=== PATIENT | female | born 2000 | race Hispanic/Latino ===

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

== ENCOUNTER 2019-11-15 23:50 | Emergency (ER) | payer BC, SELFPAY ==
--- NOTE | 2019-11-16 00:32 | EDPHYS ---
Physician Documentation [facility] Name: Loren Hanna Age: 19 yrs Sex: Female : 2000 Arrival Date: 11/15/2019 Time: 23:54 Bed 6 Private MD: ED Physician Ainl Portillo HPI: 11/15 00:17 This 19 yrs old Female presents to ER via Ambulatory with complaints of Ear pkl Pain. 00:17 The patient presents with pain, that is acute. The complaints affect the left ear. pkl Onset: The symptoms/episode began/occurred 1 week(s) ago. Associated signs and symptoms: Pertinent positives: decrease hearing. 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 - Social history:: Smoking status: Patient denies any tobacco usage or history of. Patient/guardian denies using alcohol, street drugs, IV drugs. ROS: 00:17 Eyes: Negative for injury, pain, redness, and discharge. pkl 00:17 ENT: Positive for ear pain, hearing loss, of the left ear. 00:17 Neck: Negative for injury or acute deformity. 00:17 Cardiovascular: Negative for chest pain. 00:17 Respiratory: Negative for cough. 00:17 Abdomen/GI: Negative for abdominal pain, nausea, vomiting, and diarrhea. 00:17 Back: Negative for acute changes. 00:17 : Negative for urinary symptoms. 00:17 MS/extremity: Negative for acute changes. 00:17 Skin: Negative for rash. 00:17 Neuro: Negative for altered mental status. Exam: 00:17 Head/Face: Normocephalic, atraumatic. Eyes: Pupils equal round and reactive to light, pkl extra-ocular motions intact. Lids and lashes normal. Conjunctiva and sclera are non-icteric and not injected. Cornea within normal limits. Periorbital areas with no swelling, redness, or edema. 00:17 ENT: External ear(s): erythema, that is minimal, TM's: possible rupture TM. 00:17 Neck: Exam negative for acute changes. 00:17 Chest/axilla: Exam negative for acute changes. 00:17 Cardiovascular: Rate: normal, Rhythm: regular. 00:17 Respiratory: Exam negative for acute changes. 00:17 Abdomen/GI: Exam negative for acute changes. 00:17 Back: Exam negative for acute changes. 00:17 : Exam negative for acute changes. 00:17 Musculoskeletal/extremity: Exam is negative for acute changes. 00:17 Skin: Exam negative for rash. 00:17 Neuro: Orientation: is normal, Mentation: is normal, Cranial nerves: grossly normal, Motor: is normal. Vital Signs: 00:06 BP 126 / 67; Pulse 69; Resp 18; Temp 96.8; Pulse Ox 100% on R/A; Weight 68.04 kg; mg2 Height 5 ft. 0 in. (152.40 cm); 00:06 Body Mass Index 29.29 (68.04 kg, 152.40 cm) mg2 MDM: 00:11 Patient medically screened. pkl 00:30 Data reviewed: vital signs, nurses notes. pkl Administered Medications: 00:27 Drug: UltRAM 50 mg Route: PO; mg2 00:39 Follow up: Response: No adverse reaction; Medication administered at discharge. mg2 00:27 Drug: Cipro 500 mg Route: PO; mg2 00:38 Follow up: Response: No adverse reaction; Medication administered at discharge. mg2 Disposition: 11/16/19 00:32 Discharged to Home. Impression: Left ear pain. Possible rupture tympanic membrane. - Condition is Stable. - Prescriptions for Ultram 50 mg Oral Tablet - take 1 tablet by ORAL route every 8 hours As needed; 15 tablet. Cipro 500 mg Oral Tablet - take 1 tablet by ORAL route every 12 hours for 7 days; 14 tablet. - Medication Reconciliation Form, Thank You Letter, Antibiotic Education, Prescription Opioid Use form. - Follow up: Tita Rudolph MD; When: 1 week; Reason: Re-evaluation by your physician. - Problem is new. - Symptoms are unchanged. Signatures: Anil Portillo MD MD pkl Lupillo Gómez RN RN mg2 Corrections: (The following items were deleted from the chart) 00:39 00:32 11/16/2019 00:32 Discharged to Home. Impression: Left ear pain. Possible rupture mg2 tympanic membrane. Condition is Stable. Forms are Medication Reconciliation Form, Thank You Letter, Antibiotic Education, Prescription Opioid Use. Follow up: Tita Rudolph; When: 1 week; Reason: Re-evaluation by your physician. Problem is new. Symptoms are unchanged. pkl
--- NOTE | 2019-11-16 00:32 | ER ---
Nurse's Notes [facility] Name: Loren Hanna Age: 19 yrs Sex: Female : 2000 Arrival Date: 11/15/2019 Time: 23:54 Bed 6 Private MD: Diagnosis: Left ear pain. Possible rupture tympanic membrane Presentation: 11/15 00:06 Chief complaint: Patient states: i have left ear pressure that radiates to my left mg2 cheek for a week now. no drainage noted. Coronavirus screen: Proceed with normal triage. Patient denies a cough. Patient denies shortness of breath or difficulty breathing. Patient denies measured and/or subjective temperature greater than 100.4F prior to today's visit. Patient denies travel on a cruise ship or to a country the [facility] currently lists as an affected area. Patient denies contact with known and/or suspected case of COVID-19. Ebola Screen: No symptoms or risks identified at this time. Initial Sepsis Screen: Does the patient meet any 2 criteria? No. Patient's initial sepsis screen is negative. Does the patient have a suspected source of infection? No. Patient's initial sepsis screen is negative. Risk Assessment: Do you want to hurt yourself or someone else? Patient reports no desire to harm self or others. Onset of symptoms was November 16, 2019. 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 - Social history:: Smoking status: Patient denies any tobacco usage or history of. Patient/guardian denies using alcohol, street drugs, IV drugs. Screenin:09 Abuse screen: Denies threats or abuse. Denies injuries from another. Nutritional mg2 screening: No deficits noted. Tuberculosis screening: No symptoms or risk factors identified. Fall Risk None identified. Assessment: 00:08 General: Appears in no apparent distress. comfortable, Behavior is calm, cooperative. mg2 Pain: Complains of pain in left ear. Pain: Pain radiates to left cheek. Neuro: Level of Consciousness is awake, alert, obeys commands, Oriented to person, place, time, situation. Cardiovascular: Capillary refill < 3 seconds Patient's skin is warm and dry. Respiratory: Airway is patent Respiratory effort is even, unlabored, Respiratory pattern is regular, symmetrical. GI: No signs and/or symptoms were reported involving the gastrointestinal system. : No signs and/or symptoms were reported regarding the genitourinary system. EENT: Reports pain in left ear. Derm: Skin is intact, is healthy with good turgor, Skin is pink, warm \T\ dry. normal. Musculoskeletal: Circulation, motion, and sensation intact. Capillary refill < 3 seconds. Vital Signs: 00:06 BP 126 / 67; Pulse 69; Resp 18; Temp 96.8; Pulse Ox 100% on R/A; Weight 68.04 kg; mg2 Height 5 ft. 0 in. (152.40 cm); 00:06 Body Mass Index 29.29 (68.04 kg, 152.40 cm) mg2 ED Course: 11/14 23:54 Patient arrived in ED. bp1 11/15 00:05 Lupillo Gómez, DEB is Primary Nurse. mg2 00:07 Triage completed. mg2 00:08 Arm band placed on. mg2 00:09 Patient has correct armband on for positive identification. mg2 00:09 No provider procedures requiring assistance completed. Patient did not have IV access mg2 during this emergency room visit. 00:12 Anil Portillo MD is Attending Physician. pkl 00:30 Tita Rudolph MD is Referral Physician. pkl Administered Medications: 00:27 Drug: UltRAM 50 mg Route: PO; mg2 00:39 Follow up: Response: No adverse reaction; Medication administered at discharge. mg2 00:27 Drug: Cipro 500 mg Route: PO; mg2 00:38 Follow up: Response: No adverse reaction; Medication administered at discharge. mg2 Outcome: 00:32 Discharge ordered by . pkl 00:39 Discharged to home ambulatory. mg2 00:39 Condition: stable 00:39 Discharge instructions given to patient, Instructed on discharge instructions, follow up and referral plans. medication usage, Demonstrated understanding of instructions, follow-up care, medications, Prescriptions given X 2. 00:39 Patient left the ED. mg2 Signatures: Anil Portillo MD MD pkLupillo Cantu, RN RN mg2 Fernanda Pagan bp1
[2019-11-16] MEDS ORDERED: CIPROFLOXACIN HCL 500 MG TAB ONE (00:34)
[2019-11-16] MEDS ORDERED: TRAMADOL HCL 50 MG TAB ONE (00:35)
[2019-11-16 01:34] VITALS: BP 126/67; TEMP 96.8; O2SAT 100
== END 2019-11-16 00:39 | disposition home or self-care (01) ==
LOC: ER 23:50
DX: H92.02 Otalgia, left ear (principal)
CPT/HCPCS: 99283

== ENCOUNTER 2023-12-16 22:12 | Emergency (ER) | payer SELFPAY ==
--- OUTSIDE RECORDS SUMMARY | 2023-12-16 22:14 | XMS REPORT | Continuity of Care Document ---
Author Name Unknown Address [address] [facility]. [address] [place] [address] [facility] thconnect Address [address] [facility] [address] [place] [address] Care Team Providers Care Touch Up Worker Name Role Phone Pcp, Patient Does Not Have A Primary Care Physic faith Gladis Green Attending Clinician [phone] Unknown, Attending Attending Clinician Unavailab GLADIS Lucero Attending Clinician Unavailable Doctor Unassigned, [place] Attending Clinician U dominick Boucher RN, Beverly Gage Attending Clinician Unavailab Janie Katz MD Attending Clinician [phone] Hernan José Attending Clinician [phone] HERNAN SEN Attending Clinician Unavailabl e Lab, Adc Fam Pob I Attending Clinician UnavailMarta Ayoub Attending Clinician [phone] MARTA SERNA Attending Clinician Unavailable Payers Payer Name Policy Type Policy Number Effective Date Expirati on Date Source [facility] [id number] 2021 00:00:00 Problems Condition Name Condition Details Condition Category Status Onset Date Resolution Date Last Treatment Date Treating Clinician Comments Source No known active problems No known active problems Disease [facility] Allergies, Adverse Reactions, Alerts Allergy Name Allergy Type Status Severity Reaction(s) Onset Date Inactive Date Treating Clinician Comments Source NO KNOWN ALLERGIE S Drug Class Active [facility] Social History Social Habit Start Date Stop Date Quantity Comments Source Gender [facility] History of Social function 2023-01-15 00:00:00 2023-01-15 00:00:00 [facility] Exposure to SARS-CoV-2 (event) 2020-12-23 00:00:00 2021-01-22 09:58:00 Not sure [facility] Tobacco use and exposure 2021-01-22 00:00:00 2021-01-22 00:00:00 Smokeless tobacco non-user [facility] Sex Assigned At 2000 00:00:00 2000 00:00:00 [facility] Smoking Status Start Date Stop Date Source Tobacco smoking consumption unknown [facility] Never smoked tobacco [facility] Medications Ordered Medication Name Filled Medication Name Start Date Stop Date Current Medication? Ordering Clinician Indication Dosage Frequency Signature (SIG) Comments Components Source guaiFENesin 400 mg tablet 01-22 00:00: 00 Yes [id number] 400mg Take 1 tablet by mouth every 4 (four) hours as needed for Cough. [facility] bromphenira mine-pseudo ephedrine-D M (BROMFED DM) 2-30-10 mg/5 mL syrup 01-22 00:00: 00 Yes [id number] 5mL Take 5 mL by mouth 4 (four) times daily as needed for Congestion /Allergies . [facility] benzonatate 100 mg capsule 01-22 00:00: 00 Yes [id number] 200mg Take 2 capsules by mouth 2 (two) times daily as needed for Cough. [facility] Vital Signs Vital Name Observation Time Observation Value Comments S rafaela Systolic blood pressure 2023-01-15 19:49:00 113 mm[Hg] [facility] Diastolic blood pressure 2023-01-15 19:49:00 77 mm[Hg] [facility] Heart rate 2023-01-15 19:49:00 92 /min [facility] Body temperature 2023-01-15 19:49:00 36.94 [place]ou [facility] Respiratory rate 2023-01-15 19:49:00 16 /min [facility] Body weight 2023-01-15 19:49:00 79.379 kg [facility] BMI 2023-01-15 19:49:00 34.18 kg/m2 [facility] Oxygen saturation in Arterial blood by Pulse oximetry 2023-01-15 19:49:00 98 /min [facility] Systolic blood pressure 2021-01-22 15:00:00 107 mm[Hg] [facility] Diastolic blood pressure 2021-01-22 15:00:00 74 mm[Hg] [facility] Heart rate 2021-01-22 15:00:00 92 /min [facility] Body temperature 2021-01-22 15:00:00 36.94 [place] [facility] Respiratory rate 2021-01-22 15:00:00 18 /min [facility] Body height 2021-01-22 15:00:00 152.4 cm [facility] Body weight 2021-01-22 15:00:00 68.539 kg [facility] BMI 2021-01-22 15:00:00 29.51 kg/m2 [facility] Oxygen saturation in Arterial blood by Pulse oximetry 2021-01-22 15:00:00 99 /min [facility] Procedures Procedure Date / Time Performed Performing Clinician Source POCT MOLECULAR STREP 2023-01-15 19:52:00 Unknown, Atte nding [facility] CONSENT/REFUSAL FOR DIAGNOSIS AND TREATMENT 2023-01-15 19:43:19 Doctor Unassigned, [place] [facility] PATIENT QUESTIONNAIRE 2019-12-15 05:01:00 Doctor Unassigned, [place] [facility] Encounters Start Date/Time End Date/Time Encounter Type Admission Type Attending Clinicians Care Facility Care Department Encounter ID Source 2023-01-15 14:20:00 2023-01-15 14:40:00 Urgent Care Gladis Boss Unknown, Attending [facility] [place] [id number] 350.1.13.10 4.2.7.2.686 [id number] [facility] 2023-01-15 14:20:00 2023-01-15 14:20:00 Outpatient R SANGEETHA BOSSChayitoAmadeo [facility] [id number] [facility] 2023-01-15 00:00:00 2023-01-15 00:00:00 Orders Only Doctor Unassigned, [place] [facility] 1.0.114 350.1.13.10 4.2.7.2.686 [id number] [facility] 2021-01-23 00:00:00 2021-01-23 00:00:00 Letter (Out) Beverly Boucher [facility] 1..114 350.1.13.10 4.2.7.2.686 [id number] [facility] 2021-01-22 09:19:15 2021-01-22 09:39:15 [facility] 1.114 350.1.13.10 4.2.7.2.686 [id number] [facility] 2021-01-22 09:20:00 2021-01-22 09:20:00 [id number] 2019-12-16 00:00:00 2019-12-16 00:00:00 Patient Secure Msg Doctor Unassigned, [place] [facility] 1..114 350.1.13.10 4.2.7.2.686 [id number] [facility] 2019-12-15 08:14:15 2019-12-15 08:34:15 Laboratory Only Lab, Adc Fam Pob I [facility] Building One 1.114 350.1.13.10 4.2.7.2.686 [id number] 2019-12-15 08:14:15 2019-12-15 08:34:15 Laboratory Only Lab, Adc Fam Pob I [facility] Building One 1.2.840.114 350.1.13.10 4.2.7.2.686 [id number] [facility] 2019-12-15 08:20:00 2019-12-15 08:20:00 [id number] 2019-12-15 00:00:00 2019-12-15 00:00:00 Orders Only Doctor Unassigned, [place] [facility] 1.2.840.114 350.1.13.10 4.2.7.2.686 [id number] 2019-12-15 00:00:00 2019-12-15 00:00:00 Orders Only Doctor Unassigned, [place] [facility] 1.2.840.114 350.1.13.10 4.2.7.2.686 [id number] [facility] 2019-12-03 00:00:00 2019-12-03 00:00:00 Telephone [facility] 1.2.840.114 350.1.13.10 4.2.7.2.686 [id number] [facility] 2019-12-03 00:00:00 2019-12-03 00:00:00 Telephone [facility] 1.2.840.114 350.1.13.10 4.2.7.2.686 [id number] 2019-12-01 14:40:00 2019-12-01 14:40:00 Outpatient MARTA MICHELLE [facility] [id number] [facility] 2019-12-01 14:10:34 2019-12-01 14:30:34 Laboratory Only Lab, Adc Fam Pob I Anene, Marta [facility] Building One 1.840.114 350.1.13.10 4.2.7.2.686 [id number] [facility] 2019-12-01 14:10:34 2019-12-01 14:30:34 Laboratory Only Lab, Adc Fam Pob I [facility] Building One 1.840.114 350.1.13.10 4.2.7.2.686 [id number] Results Test Description Test Time Test Comments Results Result Co mments Source [facility]
[2023-12-16] MEDS ORDERED: ONDANSETRON 4 MG (ODT) TAB ONE (22:26)
[2023-12-16] MEDS ORDERED: IBUPROFEN 400 MG TAB ONE (22:26)
[2023-12-16] MEDS ORDERED: IBUPROFEN 200 MG TAB PO ONE (22:26)
[2023-12-16 22:43] LABS: Specific Gravity 1.028 (1.005-1.030)
[2023-12-16 22:44] LABS: Specific Gravity 1.028 (1.005-1.030); Sqamous Epithelial <5 /HPF (None Seen); Urine Bacteria None Seen /HPF (<20); Urine Bilirubin NEGATIVE (Negative); Urine Blood Trace (Negative); Urine Clarity Clear (Clear); Urine Color Yellow (Yellow); Urine Culture Reflex Order NOT NEEDED; Urine Glucose NEGATIVE (Negative); Urine Ketones 1+ (Negative); Urine Microscopic Reflex YN ORDER UMIC; Urine Mucus 2+ /HPF (None Seen); Urine Nitrite NEGATIVE (Negative); Urine Protein TRACE (Negative); Urine Urobilinogen Normal (Normal); Urine WBC <5 /HPF (<5); Urine pH 6.5 (5.0-7.0)
[2023-12-16 23:21] LABS: SARS-CoV-2 Antigen CONTROL BLUE LINE VIS/BG OK; SARS-CoV-2 Antigen Rapid Res Positive (Negative)
--- NOTE | 2023-12-16 23:24 | ER ---
Nurse's Notes [facility] Name: Loren Hanna Age: 23 yrs Sex: Female : 2000 Arrival Date: 12/16/2023 Time: 22:12 Bed IW1 Private MD: Diagnosis: SARS-associated coronavirus as the cause of diseases classified elsewhere Presentation: 12/15 22:24 Chief complaint: Patient states: Sore throat onset yessterday. Pt reports abdominal cm10 pain, cough, fever, nausea and vomiting onset today. Coronavirus screen: Client denies travel out of the [place] in the last 14 days. At this time, the client does not indicate any symptoms associated with coronavirus-19. Ebola Screen: Patient denies travel to an Ebola-affected area in the 21 days before illness onset. No symptoms or risks identified at this time. Initial Sepsis Screen: Does the patient meet any 2 criteria? Temp <36.0*C (96.8*F)) or > 38.3*C (100.9*F). HR > 90 bpm. Does the patient have a suspected source of infection? No. Patient's initial sepsis screen is negative. Risk Assessment: Do you want to hurt yourself or someone else? Patient reports no desire to harm self or others. Onset of symptoms was December 16, 2023. 22:24 Method Of Arrival: Ambulatory cm10 22:24 Acuity: FLACO 3 cm10 Triage Assessment: 22:25 General: Appears in no apparent distress. uncomfortable, Behavior is calm, cooperative. cm10 Pain: Complains of pain in head and abdomen. Neuro: No deficits noted. Level of Consciousness is awake, alert, obeys commands, Oriented to person, place, time, situation, Appropriate for age. Respiratory: No deficits noted. Airway is patent Respiratory effort is even, unlabored, Respiratory pattern is regular, symmetrical. 23:37 GI: Reports nausea, vomiting. 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 - Infectious Disease History:: Denies. - Social history:: Smoking status: Patient denies any tobacco usage or history of. Screenin:36 [facility] ED Fall Risk Assessment (Adult) History of falling in the last 3 months, cm10 including since admission No falls in past 3 months (0 pts) Confusion or Disorientation No (0 pts) Intoxicated or Sedated No (0 pts) Impaired Gait No (0 pts) Mobility Assist Device Used No (0 pt) Altered Elimination No (0 pt) Score/Fall Risk Level 0 - 2 = Low Risk Oriented to surroundings, Maintained a safe environment, Hourly rounding (assess needs \T\ fall precautionary measures) done. Abuse screen: Denies threats or abuse. Denies injuries from another. Nutritional screening: No deficits noted. Tuberculosis screening: No symptoms or risk factors identified. Vital Signs: 22:24 BP 119 / 71; Pulse 128; Resp 18; Temp 101.6(O); Pulse Ox 99% on R/A; Weight 74.84 kg; cm10 Height 5 ft. 0 in. ; Pain 8/10; 23:32 Pulse 112; Resp 18; Temp 99.2(O); Pulse Ox 97% ; cm10 22:24 Body Mass Index 32.22 (74.84 kg, 152.4 cm) cm10 22:24 Pain Scale: Adult cm10 ED Course: 22:15 Patient arrived in ED. [id number] 22:15 Lynne Santana FNP-C is [facility] kb 22:15 Roberta Miller MD is Attending Physician. kb 22:25 Triage completed. cm10 22:32 Test, Urine Sent. cm10 22:32 Urinalysis w/ reflexes Sent. cm10 22:32 Strep Sent. cm10 22:32 SARS RAPID Sent. cm10 22:32 Flu Sent. cm10 22:32 Urine collected: clean catch specimen, COVID swab sent to lab. Flu and/or RSV swab sent cm10 to lab. Strep swab sent to lab. 23:36 Patient has correct armband on for positive identification. Provided Education on: cm10 Follow-up instructions.. 23:37 No provider procedures requiring assistance completed. Patient did not have IV access cm10 during this emergency room visit. 23:37 Arm band placed on. cm10 Administered Medications: 22:32 Drug: Ondansetron PO 4 mg PO once Route: PO; cm10 23:38 Follow up: Response: No adverse reaction; Marked relief of symptoms cm10 22:32 Drug: Ibuprofen PO 600 mg PO once Route: PO; cm10 23:38 Follow up: Response: No adverse reaction; Marked relief of symptoms cm10 Medication: 23:36 VIS not applicable for this client. cm10 Outcome: 23:23 Discharge ordered by MD. ye 23:37 Discharged to home ambulatory, with family, cm10 23:37 Condition: good 23:37 Discharge instructions given to patient, Instructed on discharge instructions, follow up and referral plans. medication usage, Demonstrated understanding of instructions, follow-up care, medications, Prescriptions given X 1, 23:38 Patient left the ED. cm10 Signatures: Lynne Santana, ANNIE REDDY-Laquita Enriquez6 Carlee Balderrama, RN RN cm10
--- NOTE | 2023-12-16 23:24 | EDPHYS ---
Physician Documentation [facility] Name: Loren Hanna Age: 23 yrs Sex: Female : 2000 Arrival Date: 12/16/2023 Time: 22:12 Bed IW1 Private MD: ED Physician Roberta Miller HPI: 12/15 23:26 This 23 yrs old Female presents to ER via Ambulatory with complaints of Fever, kb Cough, Nausea/Vomiting. 23:26 Pt is a 23 year old female who presents for fever, cough, congestion, nausea, vomiting kb that started today. States she had a sore throat yesterday, but it has resolved. Denies diarrhea. States she has been taking medication for the fever, but it comes back after a few hours. . 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 - Infectious Disease History:: Denies. - Social history:: Smoking status: Patient denies any tobacco usage or history of. ROS: 23:25 Constitutional: As per HPI kb Exam: 23:25 Constitutional: This is a well developed, well nourished patient who is awake, alert, kb and in no acute distress. Head/Face: Normocephalic, atraumatic. ENT: Moist Mucous membranes Cardiovascular: Regular rate Respiratory: Respirations even and unlabored. No increased work of breathing. Talking in full sentences Abdomen/GI: Soft, non-tender. No distention Skin: Warm, dry with normal turgor. Normal color. MS/ Extremity: Pulses equal, no cyanosis. Neurovascular intact. Full, normal range of motion. Neuro: Awake and alert, GCS 15, oriented to person, place, time, and situation. Moves all extremities. Normal gait. Vital Signs: 22:24 BP 119 / 71; Pulse 128; Resp 18; Temp 101.6(O); Pulse Ox 99% on R/A; Weight 74.84 kg; cm10 Height 5 ft. 0 in. ; Pain 8/10; 23:32 Pulse 112; Resp 18; Temp 99.2(O); Pulse Ox 97% ; cm10 22:24 Body Mass Index 32.22 (74.84 kg, 152.4 cm) cm10 22:24 Pain Scale: Adult cm10 MDM: 22:15 Patient medically screened. kb 23:27 Differential diagnosis: flu, covid, strep. Data reviewed: vital signs, nurses notes. I kb considered the following discharge prescriptions or medication management in the emergency department I discussed and recommended Over The Counter medications, Antibiotics: At this time antibiotics are not recommended, Antivirals: At this time, antivirals are not recommended. Counseling: I had a detailed discussion with the patient and/or guardian regarding the historical points, exam findings, and any diagnostic results supporting the discharge/admit diagnosis, lab results, the need for outpatient follow up, a family practitioner, to return to the emergency department if symptoms worsen or persist or if there are any questions or concerns that arise at home. 12/15 22:20 Order name: Flu; Complete Time: 23:23 cm10 12/15 22:20 Order name: SARS RAPID; Complete Time: 23:22 cm10 12/15 22:20 Order name: Strep; Complete Time: 23:23 cm10 12/15 22:22 Order name: Test, Urine; Complete Time: 22:45 kb 12/15 22:22 Order name: Urinalysis w/ reflexes; Complete Time: 22:45 kb 12/15 23:25 Order name: Throat Culture EDMS Administered Medications: 22:32 Drug: Ondansetron PO 4 mg PO once Route: PO; cm10 23:38 Follow up: Response: No adverse reaction; Marked relief of symptoms cm10 22:32 Drug: Ibuprofen PO 600 mg PO once Route: PO; cm10 23:38 Follow up: Response: No adverse reaction; Marked relief of symptoms cm10 Disposition Summary: 12/16/23 23:23 Discharge Ordered Notes: Location: Home kb Condition: Stable kb Diagnosis - SARS-associated coronavirus as the cause of diseases classified elsewhere kb Followup: kb - With: Emergency Department - When: As needed - Reason: Worsening of condition Followup: kb - With: Private Physician - When: 2 - 3 days - Reason: Recheck today's complaints, Continuance of care, Re-evaluation by your physician Discharge Instructions: - Discharge Summary Sheet kb - COVID-19 kb - Viral Illness, Adult kb Forms: - Medication Reconciliation Form kb - Antibiotic Education kb - Prescription Opioid Use kb - Patient Portal Instructions kb - Leadership Thank You Letter kb - Work release form cm10 Prescriptions: - Zofran 4 mg Oral tablet - take 1 tablet ORAL route every 6 hours As needed; 12 tablet; Refills: 0, kb Product Selection Permitted Signatures: Dispatcher [employer] EDMS Lynne Santana, Carlee Luna, RN RN cm10 Corrections: (The following items were deleted from the chart) 22:21 22:21 Influenza Screen (A \T\ B)+BA.LAB.BRZ ordered. EDMS EDMS 22:21 22:21 SARS-COV-2 Antigen Rapid+I.LAB.BRZ ordered. EDMS EDMS 22:21 22:21 Group A Streptococcus Rapid Sc+BA.LAB.BRZ ordered. EDMS EDMS
[2023-12-17 09:59] VITALS: BP 119/71
[2023-12-17 10:05] VITALS: TEMP 99.2; O2SAT 97
== END 2023-12-16 23:38 | disposition home or self-care (01) ==
LOC: ER 22:12
DX: U07.1 COVID-19 (principal)
CPT/HCPCS: 36415; 81001; 81025; 87070; 87081; 87804; 87811; Q0162

== ENCOUNTER 2024-04-05 16:43 | Emergency (ER) | payer BC ==
--- OUTSIDE RECORDS SUMMARY | 2024-04-05 16:45 | XMS REPORT | Continuity of Care Document ---
Author Name Unknown Address [address] 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 Name Role Phone Pcp, Patient Does Not Have A Primary Care Physic faith Gladis Green Attending Clinician [phone] Unknown, Attending Attending Clinician Unavailab GLADIS Lucero Attending Clinician Unavailable Doctor Unassigned, [place] Attending Clinician U dominick Boucher RN, Beverly Gage Attending Clinician Unavailab Janie Katz MD Attending Clinician [phone] Hernan José Attending Clinician [phone] HERNAN SEN Attending Clinician Unavailabl e Lab, Adc Fam Pob I Attending Clinician UnavailMarta Ayoub Attending Clinician [phone] MARTA SERNA Attending Clinician Unavailable Payers Payer Name Policy Type Policy Number Effective Date Expirati on Date Source [facility] [id number] 2021 00:00:00 Problems Condition Name Condition Details Condition Category Status Onset Date Resolution Date Last Treatment Date Treating Clinician Comments Source No known active problems No known active problems Disease [facility] Allergies, Adverse Reactions, Alerts Allergy Name Allergy Type Status Severity Reaction(s) Onset Date Inactive Date Treating Clinician Comments Source NO KNOWN ALLERGIE S Drug Class Active Univers [facility] Social History Social Habit Start Date Stop Date Quantity Comments Source Gender [facility] History of Social function 2023-01-15 00:00:00 2023-01-15 00:00:00 [facility] Exposure to SARS-CoV-2 (event) 2020-12-23 00:00:00 2021-01-22 09:58:00 Not sure [facility] Tobacco use and exposure 2021-01-22 00:00:00 2021-01-22 00:00:00 Smokeless tobacco non-user [facility] Sex Assigned At 2000 00:00:00 2000 00:00:00 [facility] Smoking Status Start Date Stop Date Source Tobacco smoking consumption unknown [facility] Never smoked tobacco [facility] Medications Ordered Medication Name Filled Medication Name Start Date Stop Date Current Medication? Ordering Clinician Indication Dosage Frequency Signature (SIG) Comments Components Source guaiFENesin 400 mg tablet 01-22 00:00: 00 Yes [id number] 400mg Take 1 tablet by mouth every 4 (four) hours as needed for Cough. [facility] bromphenira mine-pseudo ephedrine-D M (BROMFED DM) 2-30-10 mg/5 mL syrup 01-22 00:00: 00 Yes [id number] 5mL Take 5 mL by mouth 4 (four) times daily as needed for Congestion /Allergies . [facility] benzonatate 100 mg capsule 01-22 00:00: 00 Yes [id number] 200mg Take 2 capsules by mouth 2 (two) times daily as needed for Cough. [facility] Vital Signs Vital Name Observation Time Observation Value Comments S rafaela Systolic blood pressure 2023-01-15 19:49:00 113 mm[Hg] [facility] Diastolic blood pressure 2023-01-15 19:49:00 77 mm[Hg] [facility] Heart rate 2023-01-15 19:49:00 92 /min Unive [facility] Body temperature 2023-01-15 19:49:00 36.94 Oumou [facility] Respiratory rate 2023-01-15 19:49:00 16 /min [facility] Body weight 2023-01-15 19:49:00 79.379 kg [facility] BMI 2023-01-15 19:49:00 34.18 kg/m2 [facility] Oxygen saturation in Arterial blood by Pulse oximetry 2023-01-15 19:49:00 98 /min [facility] Systolic blood pressure 2021-01-22 15:00:00 107 mm[Hg] [facility] Diastolic blood pressure 2021-01-22 15:00:00 74 mm[Hg] [facility] Heart rate 2021-01-22 15:00:00 92 /min [facility] Body temperature 2021-01-22 15:00:00 36.94 Oumou [facility] Respiratory rate 2021-01-22 15:00:00 18 /min [facility] Body height 2021-01-22 15:00:00 152.4 cm [facility] Body weight 2021-01-22 15:00:00 68.539 kg [facility] BMI 2021-01-22 15:00:00 29.51 kg/m2 [facility] Oxygen saturation in Arterial blood by Pulse oximetry 2021-01-22 15:00:00 99 /min [facility] Procedures Procedure Date / Time Performed Performing Clinician Source POCT MOLECULAR STREP 2023-01-15 19:52:00 Unknown, Atte nding [facility] CONSENT/REFUSAL FOR DIAGNOSIS AND TREATMENT 2023-01-15 19:43:19 Doctor Unassigned, [place] [facility] PATIENT QUESTIONNAIRE 2019-12-15 05:01:00 Doctor Unassigned, [place] [facility] Encounters Start Date/Time End Date/Time Encounter Type Admission Type Attending Clinicians Care Facility Care Department Encounter ID Source 2023-01-15 14:20:00 2023-01-15 14:40:00 Urgent Care Gladis Boss Unknown, Attending [facility] [id number] 350.1.13.10 [id number] [id number] [facility] 2023-01-15 14:20:00 2023-01-15 14:20:00 Outpatient R GLADIS BOSS [facility] [id number] [facility] 2023-01-15 00:00:00 2023-01-15 00:00:00 Orders Only Doctor Unassigned, [place] [facility] 1.0.114 350.1.13.10 4.2.7.2.686 [id number] [facility] 2021-01-23 00:00:00 2021-01-23 00:00:00 Letter (Out) Beverly Boucher [facility] 1..114 350.1.13.10 4.2.7.2.686 [id number] [facility] 2021-01-22 09:19:15 2021-01-22 09:39:15 Urgent Care Janie Hall [facility] 1.114 350.1.13.10 4.2.7.2.686 [id number] [facility] 2021-01-22 09:20:00 2021-01-22 09:20:00 Outpatient R [facility] [id number] [facility] 2019-12-16 00:00:00 2019-12-16 00:00:00 Patient Secure Msg Doctor Unassigned, [place] [facility] 1..114 350.1.13.10 4.2.7.2.686 [id number] [facility] 2019-12-15 08:14:15 2019-12-15 08:34:15 Laboratory Only Lab, Adc Fam Pob I [facility] One 1.114 350.1.13.10 4.2.7.2.686 [id number] 2019-12-15 08:14:15 2019-12-15 08:34:15 Laboratory Only Lab, Adc [facility]ob [facility] [id number] 350.1.13.10 4.2.7.2.686 [id number] [facility] 2019-12-15 08:20:00 2019-12-15 08:20:00 [id number] 2019-12-15 00:00:00 2019-12-15 00:00:00 Orders Only Doctor Unassigned, [place] [facility] [id number] 350.1.13.10 4.2.7.2.686 [id number] 2019-12-15 00:00:00 2019-12-15 00:00:00 Orders Only Doctor Unassigned, [place] [facility] 1.2.840.114 350.1.13.10 4.2.7.2.686 [id number] [facility] 2019-12-03 00:00:00 2019-12-03 00:00:00 Telephone [facility] [id number] 350.1.13.10 4.2.7.2.686 [id number] [facility] 2019-12-03 00:00:00 2019-12-03 00:00:00 Telephone [facility] [id number] 350.1.13.10 4.2.7.2.686 [id number] 2019-12-01 14:40:00 2019-12-01 14:40:00 [facility] [id number] 2019-12-01 14:10:34 2019-12-01 14:30:34 Laboratory Only Lab, Adc Fam Pob I Anene, Marta [facility] Office Building One 1.840.114 350.1.13.10 4.2.7.2.686 [id number] [facility] 2019-12-01 14:10:34 2019-12-01 14:30:34 Laboratory Only Lab, Adc Fam Pob I [facility] Office Building One 1..840.114 350.1.13.10 4.2.7.2.686 [id number] Results Test Description Test Time Test Comments Results Result Co mments Source [facility]
[2024-04-05] MEDS ORDERED: ACETAMINOPHEN 500 MG TAB ONE (17:54)
[2024-04-05] MEDS ORDERED: IBUPROFEN 200 MG TAB PO ONE (17:54)
[2024-04-05] MEDS ORDERED: AZITHROMYCIN 250 MG TAB ONE (17:54)
[2024-04-05] MEDS ORDERED: ONDANSETRON 4 MG (ODT) TAB ONE (17:55)
--- NOTE | 2024-04-05 18:06 | ER ---
Nurse's Notes [facility] Name: Loren Hanna Age: 23 yrs Sex: Female : 2000 Arrival Date: 04/05/2024 Time: 16:43 Bed 6 Private MD: Diagnosis: Fever, unspecified;Acute upper respiratory infection, unspecified;Cough;Influenza due to identified novel influenza A virus with other respiratory manifestations Presentation: 04/05 17:04 Chief complaint: Patient states: last Friday I started with a sore throat. Friday I tm6 started to have a fever. I have been taking ibuprofen, but my fever keeps coming back. My chest hurts when I cough. Having nausea. Coronavirus screen: Client denies travel out of the [place] in the last 14 days. Ebola Screen: Patient negative for fever greater than or equal to 101.5 degrees Fahrenheit, and additional compatible Ebola Virus Disease symptoms Patient denies exposure to infectious person. Patient denies travel to an Ebola-affected area in the 21 days before illness onset. No symptoms or risks identified at this time. Initial Sepsis Screen: Does the patient meet any 2 criteria? Temp <36.0*C (96.8*F)) or > 38.3*C (100.9*F). HR > 90 bpm. Does the patient have a suspected source of infection? No. Patient's initial sepsis screen is negative. Risk Assessment: Do you want to hurt yourself or someone else? Patient reports no desire to harm self or others. Onset of symptoms was April 04, 2024. 17:04 Method Of Arrival: Ambulatory tm6 17:04 Acuity: FLACO 3 tm6 Triage Assessment: 17:06 General: Appears in no apparent distress. Behavior is calm, cooperative. Pain: Denies tm6 pain. EENT: No signs and/or symptoms were reported regarding the EENT system. Neuro: Level of Consciousness is awake, alert, obeys commands, Oriented to person, place, time, situation. Cardiovascular: Patient's skin is warm and dry. Respiratory: Reports cough that is pain with cough Airway is patent Respiratory effort is even, unlabored, Respiratory pattern is regular, symmetrical. GI: No signs and/or symptoms were reported involving the gastrointestinal system. Abdomen is flat, non-distended. : No signs and/or symptoms were reported regarding the genitourinary system. Derm: No signs and/or symptoms reported regarding the dermatologic system. Musculoskeletal: No deficits noted. No signs and/or symptoms reported regarding the musculoskeletal system. 17:06 GI: Reports nausea. 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 - Infectious Disease History:: Denies. - Social history:: Smoking status: Patient denies any tobacco usage or history of. - Family history:: not pertinent. Screenin:48 [facility] ED Fall Risk Assessment (Adult) History of falling in the last 3 months, db including since admission No falls in past 3 months (0 pts) Confusion or Disorientation No (0 pts) Intoxicated or Sedated No (0 pts) Impaired Gait No (0 pts) Mobility Assist Device Used No (0 pt) Altered Elimination No (0 pt) Score/Fall Risk Level 0 - 2 = Low Risk Oriented to surroundings, Maintained a safe environment. Abuse screen: Denies threats or abuse. Denies injuries from another. Nutritional screening: No deficits noted. Tuberculosis screening: No symptoms or risk factors identified. Assessment: 18:48 Reassessment: Patient appears in no apparent distress at this time. Patient and/or db family updated on plan of care and expected duration. Pain level reassessed. Patient is alert, oriented x 3, equal unlabored respirations, skin warm/dry/pink. Patient states feeling better. General: Appears in no apparent distress. comfortable, Behavior is calm, cooperative. Neuro: Level of Consciousness is awake, alert, obeys commands, Oriented to person, place, time, situation, Speech is normal. Respiratory: Airway is patent Respiratory effort is even, unlabored, Respiratory pattern is regular, symmetrical. Vital Signs: 17:03 BP 126 / 82; Pulse 134; Resp 20; Temp 103(O); Pulse Ox 97% on R/A; MAP 96 mmHg; Weight tm6 72.57 kg; Height 5 ft. 0 in. ; Pain 0/10; 18:48 BP 124 / 80; Pulse 103; Resp 18; Temp 100; Pulse Ox 97% on R/A; db 17:03 Body Mass Index 31.25 (72.57 kg, 152.4 cm) tm6 17:03 Pain Scale: Adult tm6 ED Course: 16:46 Patient arrived in ED. ra3 16:55 Vickey Barrett MD is Attending Physician. aashish 17:06 Triage completed. tm6 17:06 Arm band placed on left wrist. tm6 17:51 Audrey Bryant RN is Primary Nurse. ph 18:02 Strep Sent. ph 18:02 Flu Sent. ph 18:06 Jareth Miller DO is Referral Physician. aashish 18:48 Patient has correct armband on for positive identification. Bed in low position. Call db light in reach. Side rails up X 1. Provided Education on: DISCHARGE AND FOLLOWUP. Pulse ox on. NIBP on. Pillow given. 18:48 No provider procedures requiring assistance completed. Patient did not have IV access db during this emergency room visit. Administered Medications: 18:02 Drug: Acetaminophen PO 1000 mg PO once Route: PO; ph 18:48 Follow up: Response: No adverse reaction db 18:02 Drug: Ibuprofen PO 600 mg PO once Route: PO; ph 18:47 Follow up: Response: No adverse reaction db 18:02 Drug: Ondansetron PO 4 mg PO once Route: PO; ph 18:47 Follow up: Response: No adverse reaction db 18:02 Drug: AZITHromycin PO 500 mg PO once Route: PO; ph 18:47 Follow up: Response: No adverse reaction db 18:38 Drug: Oseltamivir PO 75 mg PO once Route: PO; ph 18:47 Follow up: Response: No adverse reaction db Medication: 18:48 VIS not applicable for this client. db Outcome: 18:06 Discharge ordered by . [facility] 18:48 Discharged to home ambulatory, with family, db 18:48 Condition: stable 18:48 Discharge instructions given to patient, Instructed on discharge instructions, follow up and referral plans. Prescriptions given X 4, 18:50 Patient left the ED. db Signatures: Vickey Barrett MD MD cha Hall, Patricia, RN RN Leisa Lockhart RN RN Yeni Gonzalez RN RN Silvia Jacinto ra3 Corrections: (The following items were deleted from the chart) 17:07 17:04 Chief complaint: Patient states: last Friday I started with a sore throat. Friday tm6 I started to have a fever. I have been taking ibuprofen, but my fever keeps coming back. My chest hurts when I cough tm6
--- NOTE | 2024-04-05 18:06 | EDPHYS ---
Physician Documentation [facility] Name: Loren Hanna Age: 23 yrs Sex: Female : 2000 Arrival Date: 04/05/2024 Time: 16:43 Bed 6 Private MD: ED Physician Vickey Barrett HPI: 04/05 17:13 This 23 yrs old Female presents to ER via Ambulatory with complaints of Fever. aashish 17:13 The patient reports fever, that was measured at 103 degrees Fahrenheit. Onset: The aashish symptoms/episode began/occurred today. Modifying factors: there are no obvious modifying factors. Associated signs and symptoms: Pertinent positives: arthralgias, cough. Severity of symptoms: At their worst the symptoms were mild in the emergency department the symptoms are unchanged. The patient has experienced similar episodes in the past, several times. 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 - Infectious Disease History:: Denies. - Social history:: Smoking status: Patient denies any tobacco usage or history of. - Family history:: not pertinent. ROS: 17:13 Eyes: Negative for injury, pain, redness, and discharge, Neck: Negative for injury, aashish pain, and swelling, Cardiovascular: Negative for chest pain, palpitations, and edema, Respiratory: Negative for shortness of breath, cough, wheezing, and pleuritic chest pain, Abdomen/GI: Negative for abdominal pain, nausea, vomiting, diarrhea, and constipation, Back: Negative for injury and pain, : Negative for injury, bleeding, discharge, and swelling, MS/Extremity: Negative for injury and deformity, Skin: Negative for injury, rash, and discoloration, Neuro: Negative for headache, weakness, numbness, tingling, and seizure, Psych: Negative for depression, anxiety, suicide ideation, homicidal ideation, and hallucinations, Allergy/Immunology: Negative for hives, rash, and allergies, Endocrine: Negative for neck swelling, polydipsia, polyuria, polyphagia, and marked weight changes, 17:13 Constitutional: Positive for body aches, chills, fatigue, fever, malaise, 17:13 ENT: Positive for nasal discharge, rhinorrhea, sore throat, Exam: 17:13 Head/Face: Normocephalic, atraumatic. Eyes: Pupils equal round and reactive to light, aashish extra-ocular motions intact. Lids and lashes normal. Conjunctiva and sclera are non-icteric and not injected. Cornea within normal limits. Periorbital areas with no swelling, redness, or edema. Neck: Trachea midline, no thyromegaly or masses palpated, and no cervical lymphadenopathy. Supple, full range of motion without nuchal rigidity, or vertebral point tenderness. No Meningismus. Chest/axilla: Normal chest wall appearance and motion. Nontender with no deformity. No lesions are appreciated. Respiratory: Lungs have equal breath sounds bilaterally, clear to auscultation and percussion. No rales, rhonchi or wheezes noted. No increased work of breathing, no retractions or nasal flaring. Abdomen/GI: Soft, non-tender, with normal bowel sounds. No distension or tympany. No guarding or rebound. No evidence of tenderness throughout. Back: No spinal tenderness. No costovertebral tenderness. Full range of motion. Skin: Warm, dry with normal turgor. Normal color with no rashes, no lesions, and no evidence of cellulitis. MS/ Extremity: Pulses equal, no cyanosis. Neurovascular intact. Full, normal range of motion. Neuro: Awake and alert, GCS 15, oriented to person, place, time, and situation. Cranial nerves II-XII grossly intact. Motor strength 5/5 in all extremities. Sensory grossly intact. Cerebellar exam normal. Normal gait. 17:13 Constitutional: The patient appears febrile, 17:13 ENT: Posterior pharynx: Airway: normal, no evidence of obstruction, Tonsils: are normal in appearance, enlarged on the right, enlarged on the left, with erythema, Uvula: normal, swelling, is not appreciated, erythema, that is mild, exudate, is not appreciated, 17:13 Neck: ROM/movement: is normal, no acute changes, limited range of motion, is not appreciated, Meningeal signs: are not present, nuchal rigidity, is not appreciated, Lymph nodes: lymphadenopathy is appreciated, anterior cervical nodes, Vital Signs: 17:03 BP 126 / 82; Pulse 134; Resp 20; Temp 103(O); Pulse Ox 97% on R/A; MAP 96 mmHg; Weight tm6 72.57 kg; Height 5 ft. 0 in. ; Pain 0/10; 18:48 BP 124 / 80; Pulse 103; Resp 18; Temp 100; Pulse Ox 97% on R/A; db 17:03 Body Mass Index 31.25 (72.57 kg, 152.4 cm) tm6 17:03 Pain Scale: Adult tm6 MDM: 16:55 Medical Screening Exam initiated aashish 17:19 Differential diagnosis: viral Infection, bacterial infection, URI, bronchitis, aashish pneumonia gastroenteritis. Data reviewed: vital signs, nurses notes, lab test result(s), Flu: negative. Consideration of Admission/Observation Escalation of care including admission/observation considered. I considered the following discharge prescriptions or medication management in the emergency department Medications were administered in the Emergency Department. See MAR. Independent interpretation of the following test(s) in the Emergency Department. 17:19 Historians other than the Patient: Spouse/Significant Other: SPOUSE WELL INFORMED. Care aashish significantly affected by the following chronic conditions: NONE. 04/05 17:09 Order name: Flu; Complete Time: 18:20 tm6 04/05 17:09 Order name: Strep; Complete Time: 18:20 6 04/05 18:19 Order name: Throat Culture EDAZ 04/05 17:13 Order name: PO challenge; Complete Time: 18:38 aashish Administered Medications: 18:02 Drug: Acetaminophen PO 1000 mg PO once Route: PO; ph 18:48 Follow up: Response: No adverse reaction db 18:02 Drug: Ibuprofen PO 600 mg PO once Route: PO; ph 18:47 Follow up: Response: No adverse reaction db 18:02 Drug: Ondansetron PO 4 mg PO once Route: PO; ph 18:47 Follow up: Response: No adverse reaction db 18:02 Drug: AZITHromycin PO 500 mg PO once Route: PO; ph 18:47 Follow up: Response: No adverse reaction db 18:38 Drug: Oseltamivir PO 75 mg PO once Route: PO; ph 18:47 Follow up: Response: No adverse reaction db Disposition Summary: 04/05/24 18:06 Discharge Ordered Notes: Location: Home aashish Problem: new aashish Symptoms: have improved aashish Condition: Stable aashish Diagnosis - Fever, unspecified aashish - Acute upper respiratory infection, unspecified aashish - Cough aashish - Influenza due to identified novel influenza A virus with other respiratory [facility] manifestations Followup: aashish - With: Private Physician - When: 2 - 3 days - Reason: Recheck today's complaints, Continuance of care, Re-evaluation by your physician Followup: aashish - With: Jareth Miller DO - When: 2 - 3 days - Reason: Recheck today's complaints, Re-evaluation by your physician Discharge Instructions: - Discharge Summary Sheet aashish - Fever, Adult aashish - Influenza, Adult aashish - Upper Respiratory Infection, Adult aashish - Cool Mist Vaporizer aashish - Upper Respiratory Infection, Adult, [id number] aashish - Cough, Adult, [id number] aashish - Cough, Adult [facility] Forms: - Medication Reconciliation Form [facility] - Antibiotic Education aashish - Prescription Opioid Use [facility] - Patient Portal Instructions [facility] - Leadership Thank You Letter aashish - School release form ph - Work release form ph - Family Work Release ph Prescriptions: - Bromfed DM 2-30-10 mg/5 mL Oral syrup - administer 5 milliliter ORAL route every 4 to 6 hours as needed for sinus [facility] symptoms; 160 milliliter; Refills: 0, Product Selection Permitted - Tessalon Perles 100 mg Oral capsule - take 2 capsule ORAL route every 8 hours As needed; 30 capsule; Refills: 0, [facility] Product Selection Permitted - Tamiflu 75 mg Oral capsule - take 1 tablet ORAL route every 12 hours for 5 days; 10 tablet; Refills: 0, [facility] Product Selection Permitted - Zithromax 500 mg Oral Tablet - take 1 tablet ORAL route once daily for 5 days; 5 tablet; Refills: 0, Product [facility] Selection Permitted Signatures: Dispatcher [employer] EDMS Vickey Barrett MD MD cha Hall, Patricia RN RN ph Yeni Camara RN RN Leisa Lujan RN db Corrections: (The following items were deleted from the chart) 17: 17:09 Influenza Screen (A \T\ B)+BA.LAB.BRZ ordered. EDMS EDMS 17:09 17:09 Group A Streptococcus Rapid Sc+BA.LAB.BRZ ordered. EDMS EDMS
[2024-04-05 23:20] VITALS: O2SAT 97
[2024-04-05 23:21] VITALS: BP 124/80; TEMP 100
== END 2024-04-05 18:50 | disposition home or self-care (01) ==
LOC: ER 16:43
DX: J06.9 Acute upper respiratory infection, unspecified (principal); J09.X2 Influenza due to identified novel influenza A virus with other respiratory manifestations
CPT/HCPCS: 87070; 87081; 87804 ×2; 99284; Q0162